=== PATIENT | male | born 1935 | race Caucasian/White ===

== ENCOUNTER 2016-10-14 12:56 | Inpatient (IN) | payer MEDICARE ==
[2016-10-14] MEDS ORDERED: Piperac/Tazob 3.375 gm in NS* 3.375 GM/100 ML BAG IVPB ONE (14:10)
[2016-10-14] MEDS ORDERED: Vancomycin(*) 1,000 MG in NS 0.9% 250 ML* 250 ML IVPB ONE (14:10)
[2016-10-14] MEDS: NS 0.9% 1000 ML* 4,000 ML IV ONE ×4 (14:32→17:19)
[2016-10-14 14:37] LABS: Hematocrit 43 % (42-52); Hemoglobin 13.4 g/dl (14.0-18.0); Mean Corpuscular HGB Conc 31 g/dl (31-36); Mean Corpuscular Hemoglobin 25 pg (27-31); Mean Corpuscular Volume 79 fL (80-94); Mean Platelet Volume 8 um3 (7.4-10.4); Red Blood Count 5.44 10^6/ul (4.0-5.4); Red Cell Distribution Width 16 % (10.5-15); White Blood Count 17.6 10^3/ul (3.5-10.8)
[2016-10-14 14:49] LABS: Albumin 3.4 g/dL (3.2-5.2); BUN/Creatinine Ratio 11.7 (8-20); Calcium 8.9 mg/dL (8.6-10.3); EGFR African American 24.5 (>60); Globulin 3.8 g/dL (2-4); Potassium 3.6 mmol/L (3.5-5.0); Total Bilirubin 0.5 mg/dL (0.2-1.0); Total Protein 7.2 g/dL (6.4-8.9)
[2016-10-14 14:51] LABS: Troponin I 0.03 ng/mL (<0.04)
--- NOTE | 2016-10-14 15:28 | RAD ---
INDICATION: Cough. Fever. Chills. COMPARISON: None TECHNIQUE: PA and lateral dual-energy views were obtained. FINDINGS: Bones/Soft Tissues: There are no acute bony findings. Cardiomediastinal: The cardiomediastinal silhouette is normal. Lungs: There is patchy bilateral infiltrative change likely related to an acute pneumonitis although follow-up is required to document resolution of these findings and exclude an underlying process. Pleura: There are no pleural effusions. Other: None IMPRESSION: SUSPECT BILATERAL PNEUMONIA. RECOMMEND FOLLOW-UP DOCUMENT TO COMPLETE RESOLUTION
[2016-10-14] MEDS ORDERED: Ondansetron INJ* 2 MG/ML VIAL IV PRN (17:03)
[2016-10-14] MEDS ORDERED: Dextrose 50% Syringe 50 ML* 25 GM/50 ML SYRINGE IV PUSH PRN (17:03)
[2016-10-14] MEDS ORDERED: Acetaminophen TAB* 325 MG PO PRN (17:03)
[2016-10-14] MEDS ORDERED: Albuterol 2.5 MG/3 ML NEB.SOL* (0.083%) INH PRN (17:14)
[2016-10-14] MEDS ORDERED: NS 0.9% 1000 ML* 1,000 ML IV SCH (17:15)
[2016-10-14] MEDS ORDERED: cefTRIAXone(*) 1 GM ADVAN ONE (17:16)
[2016-10-14] MEDS: cefTRIAXone VIAL(*) 1,000 MG in NS 0.9% 50 ML* 50 ML IVPB SCH (17:20)
[2016-10-14 17:34] LABS: C Reactive Protein 408.49 mg/L (< 5.00)
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
[2016-10-14 17:53] LABS: Urine Bacteria Absent (Absent); Urine Bilirubin Negative (Negative); Urine Glucose Negative (Negative); Urine Nitrite Negative (Negative)
[2016-10-14 18:02] LABS: Erythrocyte Sed Rate 87 mm/Hr (0-40)
[2016-10-14 18:17] LABS: Urine Bacteria Absent (Absent); Urine Bilirubin Negative (Negative); Urine Glucose Negative (Negative); Urine Nitrite Negative (Negative)
[2016-10-14] MEDS: Mometasone/Formoter 200/5 MDI INH SCH (19:45)
[2016-10-14] MEDS: Heparin VIAL(*) 5000 UNITS/ML VIAL (FIVE THOUSAND) SUBCUT SCH (22:13)
[2016-10-14] MEDS: Azithromycin IV(*) 500 MG in NS 0.9% 250 ML* 250 ML IVPB SCH (22:16)
--- NOTE | 2016-10-14 22:36 | HP ---
HISTORY AND PHYSICAL: DATE OF ADMISSION: 10/14/16 PRIMARY CARE PROVIDER: [facility] in [place]. ATTENDING PHYSICIAN WHILE IN THE HOSPITAL: Prince Waterman MD* (report dictated by Claudio Celestin NP). CHIEF COMPLAINT: 1. Fevers. 2. Body aches. HISTORY OF PRESENT ILLNESS: Mr. Warren is a 81-year-old male patient who underwent dental work at the end of last week. He had dental work done on Friday and last week. The patient states that he had a tooth prosthetic into his right upper third tooth. He states that the tooth there had become loose. He went to his dentist who said that it appeared that he had an abscess formation there that would appear to have been self-draining. The patient's dentist did proceed with cementing the tooth in and ever since having the dental work now, the patient has been having some chills, body aches progressively worsening throughout the weekend, Friday, and throughout Friday and Friday. He started antibiotics for the dental work, he is instructed to take antibiotics prior to any dental work which he had done, he had taken amoxicillin. [facility] and they started him on Augmentin. He denied having any other focal symptoms such as cough. He does admit to having chills. There has been no abdominal pain. No trouble with urination. No vomiting or diarrhea. No abdominal pain. It does not hurt to breath. He has no chest pain. He does state that he gets more short of breath particularly with exertion which is new, but he does have a history of COPD. The patient does state that about 3 weeks ago, he was diagnosed with a presumed bronchitis and was started on an antibiotic for that at that point which he subsequently has finished. He came in to the ER today because despite being on antibiotics, he still was not feeling better. He was taking ibuprofen alternating it with Tylenol and ibuprofen. The symptoms were not getting any better, so he came into the ER and was evaluated. It was found that he appeared to have viral pneumonia, appeared to be septic. Hospitalist service was asked to evaluate for admission. PAST MEDICAL HISTORY: Significant for: 1. Hypertension. 2. Hyperlipidemia. 3. Diabetes. 4. Bladder cancer. 5. CKD stage 3. They believe his creatinine is right around 1.7 baseline. 6. COPD. PAST SURGICAL HISTORY: 1. He has had a cystoscopy. 2. Bilateral knee replacements. 3. Laryngeal polyp removal. 4. ORIF of the right humerus. 5. Appendectomy. HOME MEDICATIONS: According to the pharmacy include: 1. Norvasc 2.5 mg daily. 2. Cialis 2.5 mg daily as needed. 3. VESIcare 5 mg daily. 4. Crestor 20 mg daily. 5. Altace 10 mg p.o. b.i.d. 6. Prilosec 20 mg daily. 7. Metoprolol 200 mg daily. 8. Hydrochlorothiazide 12.5 mg daily. 9. Advair 1 puff inhaled b.i.d. 10. Proscar 5 mg daily. 11. Ferrous sulfate 325 mg p.o. daily. 12. Trulicity 1.5 mg subcu weekly. 13. Cymbalta 60 mg p.o. daily. 14. Vitamin D 1000 units p.o. daily. 15. Augmentin 875 mg p.o. b.i.d. ALLERGIES TO MEDICATIONS: Include no known drug allergies. FAMILY HISTORY: His mother at the age of 89. Father of an ME in his 80s. His 2 brothers had heart attacks in their 30s. SOCIAL HISTORY: He is a former smoker. He rarely drinks alcohol. He lives alone. Surrogate decision maker is his daughter. REVIEW OF SYSTEMS: There was a documented fever. He denies having any significant weight change. No double vision. No ear discharge. No rhinorrhea. No sore throat. No thyroid enlargement. Denies having any chest pain. There is no orthopnea. No chest pain. No abdominal pain. No nausea. No vomiting. No dysuria. No frequency. No loss of consciousness. No pruritus and no skin ulcerations. Review of 14 systems completed, all others negative. PHYSICAL EXAMINATION GENERAL: At this time, Mr. Warren is a 81-year-old male patient. He is sitting in the ER stretcher. He does not appear to be in any acute distress. VITAL SIGNS: Blood pressure 102/56, pulse 91, respirations 18, O2 sat 92%, and temperature 99.5. HEENT: Head is atraumatic and normocephalic. Eyes: EOMs are intact. Sclerae are anicteric and not pale. Throat: Oral mucosa appears to be dry. No oropharyngeal erythema. I did examine the area where the dental procedure was performed. I could not appreciate any swelling, erythema, or any drainage. NECK: Supple. LUNGS: Clear to auscultation. No wheezes, rales, or rhonchi. HEART: Sounds S1, S2. Regular rate and rhythm. No murmurs, rubs, or gallops. ABDOMEN: Soft, it was flat, nontender. Bowel sounds were present. EXTREMITIES: Pulses were 2+ throughout. He is able to move all 4 extremities with 5/5 strength. NEUROLOGIC: The patient is awake, he is alert, he is oriented x3. His tongue is midline. His motorcycle service technician are equal. He had no gross focal deficits. SKIN: Intact. LABORATORY DATA AND DIAGNOSTIC STUDIES: Today revealed a WBC of 17.6, RBC of 5.44, hemoglobin of 13.4, hematocrit of 43, platelet count of 157. The INR was 1.10. PTT of 29.5. His sodium was 132, potassium of 3.6, chloride of 102, bicarb 21, BUN 37, creatinine 3.17, no previous for comparison. Glucose 230, lactic 1.7, calcium 8.9. Total bili 0.5, AST 14, ALT 11, alk phos 58. Troponin 0.03. Albumin is 3.4. He had a chest x-ray obtained today and on my review, I do see that he has what appears to be bilateral infiltrates. Radiology read it as suspect bilateral pneumonia. Recommend followup to document complete resolution. He had an EKG obtained today which showed a normal sinus rhythm with a rate of 95. No ST elevations or T-wave inversions were noted. Old medical records were reviewed. ASSESSMENT AND PLAN: Mr. Warren is a 81-year-old male patient coming to the ER today with complaints of body aches, fevers, and feeling weak particularly over the weekend since dental work. On evaluation, he was found to be septic with acute renal failure and in addition to this, bilateral pneumonia. He will be admitted under inpatient status for: 1. Severe sepsis secondary to bilateral pneumonia, as evidenced by he was mildly tachycardic here. He has had a white count of 18,000 and he also was noted to be in acute on chronic renal failure. Plan: At this point, he has gotten 4 L of fluid in the ER. I am going to panculture the patient. I did touch base with Dr. Selby because I do get concerned due to the fact he is having body aches. He has a fever now and high white count in the setting of recent dental procedure. Endocarditis certainly is on the table here. I think we should get blood cultures. They may be culture negative, so I did start out with a transthoracic echo and we will get Dr. Selby to evaluate. For the time being though, I am going to treat the pneumonia because that is my obvious source currently, with Rocephin and azithromycin. Dr. Selby will be evaluating tomorrow. We will panculture the patient. I will get a flu swab. We will get a Legionella antigen and strep pneumo antigen and we will try to get a sputum culture if at all possible. 2. Acute on chronic renal failure: At this point, this is probably multifactorial. He was taking ibuprofen. He was on an TALIB inhibitor and he appears to be dehydrated, so my plan is to go ahead and get a FeNa workup, bladder scan the patient and also give fluids, if they do not improve with fluids, I would certainly get further renal ultrasound, but I do not suspect any obstructive uropathy as he is not having any pain currently and we will continue to follow. 3. Hypertension: His blood pressure is in the soft side with the systolics in the 90s. They are up to 100 after 4 L of fluid. My plan is to hold his antihypertensives for the time being. 4. Hyperlipidemia: Continue statin therapy. 5. Diabetes: He will be on a lispro sliding scale. 6. Bladder cancer: He can follow with the primary. 7. Chronic kidney disease stage 3: Again, baseline creatinine apparently according to the family is 1.7. I am going to try to get records. He does have a component of acute renal failure. We will treat this as I previously said. 8. Chronic obstructive pulmonary disease: Fortunately, he is not wheezing. He does not appear to be in an acute exacerbation. I do not think there is a role for steroids, but I will go ahead and put him on the Spiriva. Continue the Advair p.r.n. nebulizers. I have ordered a flutter valve. 9. Code status: He is full code. 10. DVT prophylaxis: He will be placed on heparin subcu. 11. Fluids, electrolytes, and nutrition: He can have a heart healthy diet. TIME SPENT: Time spent on the admission was 70 minutes; greater than half the time was spent [id number] with the patient obtaining my history and physical, other half of the time spent going over the plan of care with the patient and implementing plan of care. I did discuss the plan of care with my attending, Dr. Waterman; he is in agreement. CLAUDIO CELESTIN NP CC: [facility] * [id number]/CPS #: [id number] [place]ODNEY
[2016-10-15] MEDS: Heparin VIAL(*) 5000 UNITS/ML VIAL (FIVE THOUSAND) SUBCUT SCH ×3 (05:37→21:01)
[2016-10-15 05:56] LABS: Hematocrit 40 % (42-52); Hemoglobin 12.4 g/dl (14.0-18.0); Mean Corpuscular HGB Conc 31 g/dl (31-36); Mean Corpuscular Hemoglobin 25 pg (27-31); Mean Corpuscular Volume 79 fL (80-94); Mean Platelet Volume 9 um3 (7.4-10.4); Red Blood Count 5.02 10^6/ul (4.0-5.4); Red Cell Distribution Width 16 % (10.5-15); White Blood Count 15.1 10^3/ul (3.5-10.8)
[2016-10-15 06:10] LABS: BUN/Creatinine Ratio 12.3 (8-20); EGFR African American 29.7 (>60); EGFR Non-African American 23.1 (>60); Potassium 3.7 mmol/L (3.5-5.0)
[2016-10-15] MEDS ORDERED: Azithromycin IV(*) 500 MG in NS 0.9% 250 ML* 250 ML IVPB ONE (08:00)
[2016-10-15] MEDS: Insulin LISPRO* 1 UNITS UNIT SUBCUT SCH ×3 (08:17→17:20)
[2016-10-15] MEDS: Finasteride TAB* 5 MG PO SCH (08:54)
[2016-10-15] MEDS: DULoxetine DR CAP* 60 MG CAP.DR PO SCH (08:54)
[2016-10-15] MEDS: CMC:Solifenacin(NF) 5 MG TAB PO SCH (08:54)
[2016-10-15] MEDS: Atorvastatin* 40 MG TAB PO SCH (08:54)
[2016-10-15] MEDS: Omeprazole CAP* 20 MG PO SCH (08:54)
[2016-10-15] MEDS ORDERED: Solifenacin(NF) 5 MG TAB PO SCH (09:00)
[2016-10-15] MEDS: Mometasone/Formoter 200/5 MDI INH SCH ×2 (10:30→20:17)
--- NOTE | 2016-10-15 11:01 | PN ---
Subjective Date of Service: 10/15/16 Interval History: Patient seen this morning, says he continues to feel very weak and SOB with exertion. Has been having some diarrhea. Says he felt well prior to his dental appointment which was down in [facility]. Has not done any camping, cannot recall being around any stagnant water. Family History: Unchanged from Admission Social History: Unchanged from Admission Past Medical History: Unchanged from Admission Objective Active Medications: Acetaminophen (Tylenol Tab*) 650 mg PO Q4H PRN Albuterol (Ventolin 2.5 Mg/3 Ml Neb.Justine*) 2.5 mg INH Q4H PRN Atorvastatin Calcium (Lipitor*) 40 mg PO DAILY JAMES Dextrose (D50w Syringe 50 Ml*) 12.5 gm IV PUSH .FOR FS < 60 - SS PRN Duloxetine HCl (Cymbalta Cap*) 60 mg PO DAILY JAMES Finasteride (Proscar Tab*) 5 mg PO DAILY [facility] Heparin Sodium (Porcine) (Heparin Vial(*)) 5,000 units SUBCUT Q8HR JAMES Ceftriaxone Sodium 1,000 mg/ (Sodium Chloride) 50 mls @ 200 mls/hr IVPB Q24H JAMES Azithromycin 500 mg/ Sodium (Chloride) 250 mls @ 250 mls/hr IVPB Q24H JAMES Insulin Human Lispro (Humalog*) 0 units SUBCUT AC JAMES Mometasone Furoate/Formoterol Fumar (Dulera 200/5 Mdi*) 2 puff INH BID JAMES Omeprazole (Prilosec Cap*) 20 mg PO DAILY JAMES Ondansetron HCl (Zofran Inj*) 4 mg IV Q6H PRN Solifenacin (Vesicare(Nf)) 5 mg PO DAILY [facility] Vital Signs 10/14/16 10/14/16 10/14/16 17:00 17:30 17:49 Temperature 98.9 F Pulse Rate 91 88 94 Respiratory 20 Rate Blood Pressure 102/56 104/49 109/50 (mmHg) O2 Sat by Pulse 93 93 94 Oximetry 10/14/16 10/14/16 10/14/16 17:59 18:29 23:43 Temperature 98.9 F 100.7 F Pulse Rate 92 94 106 Respiratory 20 24 Rate Blood Pressure 109/50 109/46 (mmHg) O2 Sat by Pulse 94 94 92 Oximetry 10/15/16 10/15/16 10/15/16 03:32 07:45 08:00 Temperature 99.4 F 99.4 F Pulse Rate 99 102 Respiratory 24 16 16 Rate Blood Pressure 109/59 116/38 (mmHg) O2 Sat by Pulse 91 93 93 Oximetry Oxygen Devices in Use Now: Nasal Cannula Appearance: Elderly, M, laying in bed in mild respiratory distress Eyes: No Scleral Icterus Ears/Nose/Mouth/Throat: Mucous Membranes Moist Neck: NL Appearance and Movements; NL JVP Respiratory: Symmetrical Chest Expansion and Respiratory Effort, - - Mild rales in B/L bases, no wheezing Cardiovascular: NL Sounds; No Murmurs; No JVD, RRR Abdominal: NL Sounds; No Tenderness; No Distention Lymphatic: No Cervical Adenopathy Extremities: - - Trace LE edema B/L Skin: No Rash or Ulcers Neurological: Alert and Oriented x 3 Result Diagrams: 10/15/16 05:04 10/15/16 05:04 Microbiology and Other Data: Microbiology 10/15/16 09:10 Gram Stain - Final Sputum 10/14/16 17:45 Legionella Urinary Antigen - Final Urine Positive Legionella Antigen Streptococcus pneumoniae Ag Screen - Final Negative S. pneumo Antigen 10/14/16 17:30 Influenza Types A,B Antigen (LISA) - Final Nasal Specimen received for Influenza A/B Molecular testing Assess/Plan/Problems-Billing Assessment: Sepsis, acute hypoxic respiratory failure 2/2 Legionella PNA in a 81 yo M with hx of HTN, HLD, DM, CKD3, COPD, bladder ca - Patient Problems (1) Sepsis Current Visit: Yes Comment: , acute hypoxic respiratory failure 2/2 Legionella PNA. Additional 500 mg IV Azithromycin given this AM for total of 1 g so far. Continue Azithromycin 500 mg daily, continue CTX for now as well. Continue follow BCx. Echo pending read, endocarditis seems less likely now. (2) KOFI (acute kidney injury) Current Visit: Yes Comment: on CKD3. Creatinine improving, FeNa <1%. Patient' s baseline seems to be around 1.7 as per reports. Patient received 5L IVF, hold on additional fluids for now and encourage PO only. Trend BMP daily. Continue to hold nephrotoxic medications. (3) HTN (hypertension) Current Visit: Yes Comment: Continue to hold home Metoprolol, Ramipril, HCTZ and Amlodipine (4) Diabetes Current Visit: Yes Comment: HISS. Holding home Trulicity. (5) HLD (hyperlipidemia) Current Visit: Yes Comment: Statin (6) DVT prophylaxis Current Visit: Yes Comment: HSQ Status and Disposition: Inpatient for legionella PNA, acute hypoxic respiratory failure
--- NOTE | 2016-10-15 12:06 | ECHO ---
Patient: KODAK BENNETT [facility] Rec#: [id number] : 1935 Date: 10/15/2016 Age: 81y Height: 170.18 cm / 67.0 in Weight: 113.4 kg / 249.9 lbs Sex: M BSA: 2.22 Room#: [facility] Admit Date#: 10/14/2016 Type: Inpatient Referring: Claudio Celestin NP Reading: Cr Skinner MD Quality Assurance Auditor: Sera Grider Quality Assurance Auditor: Berenice Patel RDCS,RDMS CC: Luis Felipe Selby MD Transthoracic Echocardiogram Indication: Fever BP: 109/59 HR: 91 Rhythm: NSR Indications Fever Findings History: HTN, HLD, DM, CKD stage III, COPD. Technical Comments: The study is technically difficult. The study is technically limited due to patient body habitus. The study is technically limited due to the patient's history of COPD. Completed at 1100. Left Ventricle: The left ventricular chamber size is normal. Moderate concentric left ventricular hypertrophy is observed. Global left ventricular wall motion and contractility are within normal limits. The left ventricle appears hyperdynamic. The estimated ejection fraction is greater than 65%. There is no consistent Doppler evidence of clinically significant diastolic dysfunction. Left Atrium: The left atrium is mildly dilated. Right Ventricle: The right ventricular cavity size is normal. The right ventricular global systolic function is hyperdynamic. Right Atrium: The right atrial cavity size is normal. Aortic Valve: The aortic valve is trileaflet. The aortic valve leaflets are mildly thickened. There is a trace of aortic regurgitation. There is mild aortic stenosis. The aortic valve area, by VTI's, is calculated at 2 cm2. The highest aortic valve velocity was obtained with the standard probe from the A5C view. Mitral Valve: The mitral valve leaflets are mildly thickened. There is a trace of mitral regurgitation. There is no evidence of mitral stenosis. Tricuspid Valve: The tricuspid valve leaflets are normal. There is trace to mild tricuspid regurgitation. There is evidence that pulmonary hypertension may be underestimated. There is no tricuspid stenosis. Pulmonic Valve: The pulmonic valve structure is not well visualized. There is no pulmonic stenosis. Pericardium: There is no significant pericardial effusion. A pericardial fat pad is visualized. Aorta: There is no dilatation of the ascending aorta. The aortic arch is not well visualized. There is no dilation of the aortic root. Pulmonary Artery: The main pulmonary artery is not well visualized. Venous: The inferior vena cava appears normal in size. There is a greater than 50% respiratory change in the inferior vena cava dimension. Conclusions Moderate concentric left ventricular hypertrophy is observed. Global left ventricular wall motion and contractility are within normal limits. The left ventricle appears hyperdynamic. The estimated ejection fraction is greater than 65%. The right ventricular global systolic function is hyperdynamic. The aortic valve leaflets are mildly thickened. There is mild aortic stenosis. There is a trace of aortic regurgitation. Peak velocity 2.3 m/sec There is a trace of mitral regurgitation. There is trace to mild tricuspid regurgitation. There is no significant pericardial effusion. Measurements Name Value Normal Range RVIDd (AP) 2D 3.1 cm (0.9 - 2.6) RVDdMajor (2D) 4.3 cm (2.2 - 4.4) RAd ISD 4CH 4.8 cm (3.4 - 4.9) RA (A4C)W 4.5 cm (2.9 - 4.6) IVSd (2D) 1.5 cm (0.6 - 1) LVPWd (2D) 1.3 cm (0.6 - 1) LVIDd (2D) 4.5 cm (3.6 - 5.4) LVIDs (2D) 2.8 cm - LV FS (2D) 36 % (25 - 45) Aortic Annulus 2.2 cm (1.4 - 2.6) Ao root diameter (2D) 2.9 cm (2.1 - 3.5) Ascending Ao 3.4 cm (2.1 - 3.4) LA dimension (AP) 2D 4.2 cm (2.3 - 3.8) LAd ISD 4CH 5.7 cm (2.9 - 5.3) LA ISD 4CH W 4.1 cm (2.5 - 4.5) Name Value Normal Range LA ESV SP 4CH (A/L) 67 ml - LA ESV SP 2CH (A/L) 66 ml - LA ESV BP (A/L) 69 ml - LA ESV BP (A/L) index 31.16 ml/m2 - LA ESV SP 4CH (MOD) 60 ml - LA ESV SP 2CH (MOD) 58 ml - Name Value Normal Range MV E-wave Vmax 0.91 m/sec - MV deceleration time 161 msec - MV A-wave Vmax 0.8 m/sec - MV E:A ratio 1.18 ratio - LV septal e' Vmax 0.09 m/sec - LV lateral e' Vmax 0.1 m/sec - LV E:e' septal ratio 10.1 ratio - LV E:e' lateral ratio 9.1 ratio - Name Value Normal Range AV Vmax 2.47 m/sec - AV VTI 41.1 cm - AV peak gradient 24.41 mmHg - AV mean gradient 14.8 mmHg - LVOT diameter 2 cm - LVOT Vmax 1.55 m/sec - LVOT VTI 26.1 cm - LVOT peak gradient 9.63 mmHg - LVOT mean gradient 5.05 mmHg - DOI (VTI) 0.64 ratio - ROSHNI (continuity Vmax) 1.97 cm2 - ROSHNI (continuity VTI) 2 cm2 - Name Value Normal Range TR Vmax 2.3 m/sec - TR peak gradient 21 mmHg - RAP 3 mmHg - RVSP 24 mmHg - IVC diameter 2 cm - Name Value Normal Range PV Vmax 1.3 m/sec - PV peak gradient 6.34 mmHg -
[2016-10-15] MEDS: cefTRIAXone VIAL(*) 1,000 MG in NS 0.9% 50 ML* 50 ML IVPB SCH (17:20)
[2016-10-15] MEDS: Azithromycin IV(*) 500 MG in NS 0.9% 250 ML* 250 ML IVPB SCH (19:22)
--- NOTE | 2016-10-15 21:53 | CONS ---
CONSULTATION REPORT: DATE OF CONSULT: 10/15/16 REQUESTING PHYSICIAN: Dr. Abbasi. CONSULTING SERVICE: Infectious Disease. REASON FOR CONSULT: Pneumonia. IMPRESSION: 1. Bibasilar infiltrates, cough, myalgia, diarrhea, and positive legionella urine antigen all consistent with legionella pneumonia. 2. Leukocytosis due to #1. 3. Acute hypoxemic respiratory failure present on admission due to #1. 4. Sepsis present on admission due to #1. 5. Chronic kidney disease with acute kidney injury. RECOMMENDATION: Continue ceftriaxone while awaiting the final sputum culture as well as azithromycin. If the sputum culture is negative, we are going to stop the ceftriaxone. Planning on 7 days of azithromycin. HISTORY OF PRESENT ILLNESS: This is a 81-year-old man admitted with cough, myalgia, and diarrhea. He had been well until the weekend. He began to develop chills and diffuse aches, which were intense, involved all parts of his body. He had some headache, then Friday developed some liquid stools. Had had ongoing sweats and chills during that time. He lost his appetite, was drinking water. He came to the hospital on the . He was febrile in the emergency room, was tachycardic and hypotensive in the 90s, and was started on IV fluids, ceftriaxone, azithromycin after getting the Zosyn in the ER. There was original concern for dental-based infection given he has had some dental work as an outpatient including removal and cleaning of a bridge. He initially also sought care at [facility] where he was prescribed Augmentin which he took for about a day. He had no improvement while taking it. PAST MEDICAL HISTORY: 1. Hypertension. 2. Hyperlipidemia. 3. Diabetes. 4. Bladder cancer. 5. Chronic kidney disease, stage 3. 6. COPD. 7. Status post bilateral knee arthroplasty. 8. Status post open reduction internal fixation of the right humerus. 9. Status post appendectomy. MEDICATIONS: 1. Tylenol. 2. Albuterol. 3. Lipitor. 4. Duloxetine. 5. Finasteride. 6. Omeprazole. 7. Ceftriaxone 1 g daily. 8. Solifenacin. 9. Azithromycin 500 mg every 24 hours. ALLERGIES: No known drug allergies. FAMILY HISTORY: No recurrent infections. SOCIAL HISTORY: He lives in [place], recently traveled to [facility], staying with a friend there. He has no sick contacts. REVIEW OF SYSTEMS: Full review of systems was negative except as noted above. PHYSICAL EXAM: Vital Signs: Temperature is 38.1, heart rate 102, respiratory rate 20, blood pressure 116/38, O2 sat 91% on room air. In general, he is awake , non- distressed. HEENT: There is no conjunctival hemorrhage. Oropharynx without lesions. Neck is supple without nuchal rigidity. Lymph Nodes: There is no cervical, supraclavicular, inguinal, axillary, or epitrochlear lymphadenopathy. Heart is regular and tachycardic without murmurs. Lungs have decreased breath sounds at the base bilaterally. Abdomen: Soft, obese, nontender, nondistended. There are bowel sounds present. Skin: There is no rash or splinter hemorrhages. Musculoskeletal: There is no spine tenderness to palpation or joint synovitis. LABORATORY DATA: White blood cell count , hemoglobin 12, platelets 156, MCV 79. Creatinine 2.7. CRP 400. Blood cultures are negative 24 hours. Please impressions and recommendations as outlined above which I have discussed with Dr. Abbasi. Thanks for asking me to see Dr. Warren in consultation. [id number]/CPS #: [id number] MTDD
[2016-10-16] MEDS: Heparin VIAL(*) 5000 UNITS/ML VIAL (FIVE THOUSAND) SUBCUT SCH ×3 (05:29→21:40)
[2016-10-16] MEDS: Mometasone/Formoter 200/5 MDI INH SCH ×2 (08:24→20:14)
[2016-10-16] MEDS: Insulin LISPRO* 1 UNITS UNIT SUBCUT SCH ×3 (08:37→16:46)
[2016-10-16] MEDS: Finasteride TAB* 5 MG PO SCH (08:37)
[2016-10-16] MEDS: CMC:Solifenacin(NF) 5 MG TAB PO SCH (08:37)
[2016-10-16] MEDS: DULoxetine DR CAP* 60 MG CAP.DR PO SCH (08:37)
[2016-10-16] MEDS: Atorvastatin* 40 MG TAB PO SCH (08:37)
[2016-10-16] MEDS: Omeprazole CAP* 20 MG PO SCH (08:37)
--- NOTE | 2016-10-16 11:00 | PN ---
Progress Note - Progress Note SOAP: Subjective: DOS: 10/16/16 CC: pneumonia HPI: 81 year old man with cough, fever, myalgia, now has cough but myalgia and fever improved. No rash, had diarrhea which is improving. No abd pain. Objective: [] Vital Signs Temp 36.8 C 10/16/16 07:16 Pulse 100 10/16/16 08:25 Resp 20 10/16/16 08:25 BP 130/56 10/16/16 07:16 Pulse Ox 93 10/16/16 08:25 Intake & Output 10/15/16 10/16/16 10/16/16 18:59 06:59 18:59 Intake Total 260 1525 350 Output Total 600 875 Balance -340 650 350 Intake: IV Fluids 20 NS (0.9%) 20 IVPB 260 265 ABX - AZITHROMYCIN 260 265 Oral 0 1240 350 Output: Urine 600 875 Other: # Bowel Movements 1 0 Estimated Stool Amount Medium Gen:no distress Neuro:AAOx3 HEENT:PERRL, MMM Neck:Supple Heart:RRR no murmurs Lungs:CTA BL Abd:+BS NTND soft Skin: no rash MS: no spine tenderness Laboratory Results - last 24 hr 10/15/16 10/15/16 10/16/16 11:40 16:48 07:31 POC Glucose (mg/dL) 179 H 163 H 154 H Assessment: 1. Legionella pneumonia 2. diabetes 3. morbid obesity 4. CKD, stage 3 5. dyspnea Plan: 1. DC ceftriaxone, continue azithromycin 500 mg IV Q24hrs day 08/20, likely change to PO on 10/17. 35 minutes floor time >50% face to face in counseling with patient and his significant other discussing his infection, antibiotic treatment and monitoring of treatment response. All questions answered.
--- NOTE | 2016-10-16 11:53 | PN ---
Subjective Date of Service: 10/16/16 Interval History: HOSPITALIST PROGRESS NOTE Patient seen and examined at bedside. He feels a little better today. Still has some cough, but denies dyspnea. Family History: Unchanged from Admission Social History: Unchanged from Admission Past Medical History: Unchanged from Admission Objective Active Medications: Acetaminophen (Tylenol Tab*) 650 mg PO Q4H PRN PRN Reason: FEVER/PAIN Last Admin: 10/14/16 22:46 Dose: 650 mg Albuterol (Ventolin 2.5 Mg/3 Ml Neb.Justine*) 2.5 mg INH Q4H PRN PRN Reason: SOB/WHEEZING Atorvastatin Calcium (Lipitor*) 40 mg PO DAILY [facility] Last Admin: 10/16/16 08:37 Dose: 40 mg Dextrose (D50w Syringe 50 Ml*) 12.5 gm IV PUSH .FOR FS < 60 - SS PRN PRN Reason: FS < 60 Duloxetine HCl (Cymbalta Cap*) 60 mg PO DAILY [facility] Last Admin: 10/16/16 08:37 Dose: 60 mg Finasteride (Proscar Tab*) 5 mg PO DAILY [facility] Last Admin: 10/16/16 08:37 Dose: 5 mg Heparin Sodium (Porcine) (Heparin Vial(*)) 5,000 units SUBCUT Q8HR [facility] Last Admin: 10/16/16 05:29 Dose: 5,000 units Azithromycin 500 mg/ Sodium (Chloride) 250 mls @ 250 mls/hr IVPB Q24H [facility] Last Admin: 10/15/16 19:22 Dose: 250 mls/hr Insulin Human Lispro (Humalog*) 0 units SUBCUT AC [facility] PRN Reason: Protocol Last Admin: 10/16/16 08:37 Dose: 3 unit Mometasone Furoate/Formoterol Fumar (Dulera 200/5 Mdi*) 2 puff INH BID [facility] Last Admin: 10/16/16 08:24 Dose: Not Given Omeprazole (Prilosec Cap*) 20 mg PO DAILY [facility] Last Admin: 10/16/16 08:37 Dose: 20 mg Ondansetron HCl (Zofran Inj*) 4 mg IV Q6H PRN PRN Reason: NAUSEA Solifenacin (Vesicare(Nf)) 5 mg PO DAILY [facility] Last Admin: 10/16/16 08:37 Dose: 5 mg Vital Signs 10/16/16 10/16/16 10/16/16 08:00 08:25 11:21 Temperature 98.0 F Pulse Rate 100 95 Respiratory 16 20 18 Rate Blood Pressure 129/64 (mmHg) O2 Sat by Pulse 93 93 96 Oximetry Oxygen Devices in Use Now: Nasal Cannula Appearance: Elderly obese male sitting up in bed in NAD. Eyes: No Scleral Icterus Ears/Nose/Mouth/Throat: Mucous Membranes Moist Neck: Trachea Midline Respiratory: Symmetrical Chest Expansion and Respiratory Effort, - - BS+ bilaterally with bibasilar crackles Cardiovascular: RRR - Normal S1 and S2 Abdominal: NL Sounds; No Tenderness; No Distention - obese Extremities: No Edema Neurological: Alert and Oriented x 3, NL Muscle Strength and Tone Lines/Tubes/Other Access: Clean, Dry and Intact Peripheral IV Nutrition: Taking PO's Result Diagrams: 10/15/16 05:04 10/15/16 05:04 Assess/Plan/Problems-Billing Assessment: Mr. Warren is a 81yo M with PMH of morbid obesity, ABENA (non compliant with CPAP) , HTN, HLD, type 2 DM, bladder CA, CKD stage 3, COPD, who presented with sepsis , acute hypoxic respiratory failure 2/2 Legionella PNA. - Patient Problems (1) Sepsis Comment: - Met sepsis criteria on admission with tachycardia and leukocytosis. - Source is Legionella pneumonia. (2) Legionella pneumonia Comment: - ID input appreciated - d/c Ceftriaxone and continue Zithromax. (3) Acute hypoxemic respiratory failure Comment: - Secondary to pneumonia. - Continue supplemental O2. (4) KOFI (acute kidney injury) Comment: - on CKD3. Creatinine improving, FeNa <1%. Patient's baseline seems to be around 1.7 as per reports. - Continue to monitor. (5) HTN (hypertension) Comment: - BP controlled off meds. - Continue to hold home Metoprolol, Ramipril, HCTZ and Amlodipine. (6) Diabetes Comment: - Continue Lispro SS. - Holding home Trulicity. (7) HLD (hyperlipidemia) Comment: - Continue Atorvastatin. (8) DVT prophylaxis Comment: - SQ heparin. (9) Full code status Status and Disposition: Inpatient for legionella PNA, acute hypoxic respiratory failure
[2016-10-16] MEDS: Azithromycin IV(*) 500 MG in NS 0.9% 250 ML* 250 ML IVPB SCH (20:02)
[2016-10-17] MEDS: Heparin VIAL(*) 5000 UNITS/ML VIAL (FIVE THOUSAND) SUBCUT SCH ×3 (05:41→21:41)
[2016-10-17 05:56] LABS: Hematocrit 39 % (42-52); Hemoglobin 12.4 g/dl (14.0-18.0); Mean Corpuscular HGB Conc 32 g/dl (31-36); Mean Corpuscular Hemoglobin 25 pg (27-31); Mean Corpuscular Volume 78 fL (80-94); Mean Platelet Volume 8 um3 (7.4-10.4); Red Cell Distribution Width 16 % (10.5-15); White Blood Count 7.4 10^3/ul (3.5-10.8)
[2016-10-17 05:59] LABS: Add Diff/Slide Review? Slide Review Added; Comments Flag Yes
[2016-10-17 06:08] LABS: Calcium 8.6 mg/dL (8.6-10.3); EGFR African American 48.6 (>60); EGFR Non-African American 37.8 (>60); Potassium 3.6 mmol/L (3.5-5.0)
[2016-10-17] MEDS: Mometasone/Formoter 200/5 MDI INH SCH ×2 (08:36→20:25)
[2016-10-17] MEDS: Atorvastatin* 40 MG TAB PO SCH (09:37)
[2016-10-17] MEDS: CMC:Solifenacin(NF) 5 MG TAB PO SCH (09:37)
[2016-10-17] MEDS: DULoxetine DR CAP* 60 MG CAP.DR PO SCH (09:37)
[2016-10-17] MEDS: Finasteride TAB* 5 MG PO SCH (09:38)
[2016-10-17] MEDS: Insulin LISPRO* 1 UNITS UNIT SUBCUT SCH ×3 (09:38→16:50)
[2016-10-17] MEDS: Omeprazole CAP* 20 MG PO SCH (09:38)
--- NOTE | 2016-10-17 09:59 | PN ---
Progress Note - Progress Note SOAP: Subjective: DOS: 10/17/16 CC: pneumonia HPI: 81 year old man with cough, fever, myalgia, all improving. Dyspnea on exertion, not at rest, no chest pain. O2 sat high 80's w ambulation. No rash, fever, or diarrhea. Objective: [] Vital Signs Temp 36.7 C 10/17/16 06:05 Pulse 92 10/17/16 08:36 Resp 16 10/17/16 08:36 BP 126/49 10/17/16 06:05 Pulse Ox 93 10/17/16 08:36 Intake & Output 10/16/16 10/17/16 10/17/16 18:59 06:59 18:59 Intake Total 550 282 Output Total 350 350 Balance 200 -68 Intake: IV Fluids 20 NS (0.9%) 20 IVPB 262 ABX - AZITHROMYCIN 262 Oral 550 0 Output: Urine 350 350 Gen:no distress Neuro:AAOx3 HEENT:PERRL, MMM Neck:Supple Heart:RRR no murmurs Lungs:CTA BL Abd:+BS NTND soft Skin: no rash MS: no spine tenderness Laboratory Results - last 24 hr 10/16/16 10/16/16 10/17/16 11:31 16:25 05:15 WBC 7.4 RBC 5.00 Hgb 12.4 L Hct 39 L MCV 78 L MCH 25 L MCHC 32 RDW 16 H Plt Count 183 MPV 8 Neut % (Auto) 71.7 Lymph % (Auto) 10.5 L [place] % (Auto) 13.9 H Eos % (Auto) 3.5 Baso % (Auto) 0.4 Absolute Neuts (auto) 5.3 Absolute Lymphs (auto) 0.8 L Absolute Monos (auto) 1.0 H Absolute Eos (auto) 0.3 Absolute Basos (auto) 0 Absolute Nucleated RBC 0 Nucleated RBC % 0 Sodium Potassium Chloride Carbon Dioxide Anion Gap BUN Creatinine Est GFR ( Amer) Est GFR (Non-Af Amer) BUN/Creatinine Ratio Glucose POC Glucose (mg/dL) 222 H 117 H Calcium 10/17/16 10/17/16 05:15 08:19 WBC RBC Hgb Hct MCV MCH MCHC RDW Plt Count MPV Neut % (Auto) Lymph % (Auto) [place] % (Auto) Eos % (Auto) Baso % (Auto) Absolute Neuts (auto) Absolute Lymphs (auto) Absolute Monos (auto) Absolute Eos (auto) Absolute Basos (auto) Absolute Nucleated RBC Nucleated RBC % Sodium 139 Potassium 3.6 Chloride 109 Carbon Dioxide 24 Anion Gap 6 BUN 21 Creatinine 1.75 H Est GFR ( Amer) 48.6 Est GFR (Non-Af Amer) 37.8 BUN/Creatinine Ratio 12.0 Glucose 137 H POC Glucose (mg/dL) 159 H Calcium 8.6 Assessment: 1. Legionella pneumonia 2. acute hypoxemic respiratory failure, present on admission, resolving 3. diabetes 4. morbid obesity 5. CKD, stage 3 6. dyspnea Plan: 1.continue azithromycin 500 mg IV Q24hrs day 09/20, change to PO (ordered) 25 minutes floor time >50% face to face in counseling with patient regarding antibiotic course, likely slow improvement in symptoms including dyspnea and energy. All questions answered.
[2016-10-17] MEDS ORDERED: Azithromycin TAB* 250 MG PO ONE (14:00)
--- NOTE | 2016-10-17 14:12 | PN ---
Subjective Date of Service: 10/17/16 Interval History: HOSPITALIST PROGRESS NOTE Patient seen and examined at bedside. He feels better today. Still has some cough and exertional dyspnea, but less intense than before. Family History: Unchanged from Admission Social History: Unchanged from Admission Past Medical History: Unchanged from Admission Objective Active Medications: Acetaminophen (Tylenol Tab*) 650 mg PO Q4H PRN PRN Reason: FEVER/PAIN Last Admin: 10/14/16 22:46 Dose: 650 mg Albuterol (Ventolin 2.5 Mg/3 Ml Neb.Justine*) 2.5 mg INH Q4H PRN PRN Reason: SOB/WHEEZING Atorvastatin Calcium (Lipitor*) 40 mg PO DAILY [facility] Last Admin: 10/17/16 09:37 Dose: 40 mg Dextrose (D50w Syringe 50 Ml*) 12.5 gm IV PUSH .FOR FS < 60 - SS PRN PRN Reason: FS < 60 Duloxetine HCl (Cymbalta Cap*) 60 mg PO DAILY [facility] Last Admin: 10/17/16 09:37 Dose: 60 mg Finasteride (Proscar Tab*) 5 mg PO DAILY [facility] Last Admin: 10/17/16 09:38 Dose: 5 mg Heparin Sodium (Porcine) (Heparin Vial(*)) 5,000 units SUBCUT Q8HR [facility] Last Admin: 10/17/16 13:43 Dose: 5,000 units Insulin Human Lispro (Humalog*) 0 units SUBCUT AC [facility] PRN Reason: Protocol Last Admin: 10/17/16 12:03 Dose: 6 unit Mometasone Furoate/Formoterol Fumar (Dulera 200/5 Mdi*) 2 puff INH BID [facility] Last Admin: 10/17/16 08:36 Dose: 2 puff Omeprazole (Prilosec Cap*) 20 mg PO DAILY [facility] Last Admin: 10/17/16 09:38 Dose: 20 mg Solifenacin (Vesicare(Nf)) 5 mg PO DAILY [facility] Last Admin: 10/17/16 09:37 Dose: 5 mg Vital Signs 10/17/16 10/17/16 10/17/16 05:44 06:05 08:00 Temperature 98.0 F Pulse Rate 77 Respiratory 20 18 Rate Blood Pressure 126/49 (mmHg) O2 Sat by Pulse 96 92 93 Oximetry 10/17/16 08:36 Temperature Pulse Rate 92 Respiratory 16 Rate Blood Pressure (mmHg) O2 Sat by Pulse 93 Oximetry Oxygen Devices in Use Now: Nasal Cannula Appearance: Pleasant elderly male sitting up in a chair in NAD. Eyes: No Scleral Icterus Ears/Nose/Mouth/Throat: Mucous Membranes Moist Neck: Trachea Midline Respiratory: Symmetrical Chest Expansion and Respiratory Effort, - - BS+ bilaterally with bibasilar crackles Cardiovascular: RRR - Normal S1 and S2 Abdominal: NL Sounds; No Tenderness; No Distention - obese Neurological: Alert and Oriented x 3, NL Muscle Strength and Tone Lines/Tubes/Other Access: Clean, Dry and Intact Peripheral IV Nutrition: Taking PO's Result Diagrams: 10/17/16 05:15 10/17/16 05:15 Assess/Plan/Problems-Billing Assessment: Mr. Warren is a 81yo M with PMH of morbid obesity, ABENA (non compliant with CPAP) , HTN, HLD, type 2 DM, bladder CA, CKD stage 3, COPD, who presented with sepsis , acute hypoxic respiratory failure 2/2 Legionella PNA. - Patient Problems (1) Sepsis Comment: - Met sepsis criteria on admission with tachycardia and leukocytosis. - Source is Legionella pneumonia. (2) KOFI (acute kidney injury) Comment: - Creatinine back to baseline. (3) HTN (hypertension) Comment: - BP controlled off meds. - Continue to hold home Metoprolol, Ramipril, HCTZ and Amlodipine. (4) Diabetes Comment: - Continue Lispro SS. - Holding home Trulicity. (5) HLD (hyperlipidemia) Comment: - Continue Atorvastatin. (6) DVT prophylaxis Comment: - SQ heparin. (7) Acute hypoxemic respiratory failure Comment: - Secondary to pneumonia. - Continue supplemental O2. (8) Legionella pneumonia Comment: - ID input appreciated - continue Zithromax. (9) Full code status Status and Disposition: Inpatient for legionella PNA, acute hypoxic respiratory failure. Anticipate d/c in AM.
[2016-10-18] MEDS: Heparin VIAL(*) 5000 UNITS/ML VIAL (FIVE THOUSAND) SUBCUT SCH ×2 (05:57→13:00)
[2016-10-18] MEDS: Omeprazole CAP* 20 MG PO SCH (09:38)
[2016-10-18] MEDS: DULoxetine DR CAP* 60 MG CAP.DR PO SCH (09:38)
[2016-10-18] MEDS: Atorvastatin* 40 MG TAB PO SCH (09:38)
[2016-10-18] MEDS: Finasteride TAB* 5 MG PO SCH (09:38)
[2016-10-18] MEDS: CMC:Solifenacin(NF) 5 MG TAB PO SCH (09:38)
[2016-10-18] MEDS: Insulin LISPRO* 1 UNITS UNIT SUBCUT SCH ×2 (09:41→12:59)
[2016-10-18 10:38] VITALS: BP 144/77
[2016-10-18] MEDS: Mometasone/Formoter 200/5 MDI INH SCH (10:45)
--- NOTE | 2016-10-19 03:46 | DS ---
CC: Dr. Germaine Slater DISCHARGE SUMMARY: DATE OF ADMISSION: 10/14/16 DATE OF DISCHARGE: 10/18/16 PRIMARY CARE PROVIDER: Dr. Germaine Slater at [facility], phone number [phone]. DISCHARGE DIAGNOSES: 1. Severe sepsis. 2. Legionella pneumonia. 3. Acute on chronic hypoxemic respiratory failure. 4. Acute on chronic renal failure. 5. Leukocytosis. 6. Hypotension. SECONDARY DIAGNOSES: 1. Morbid obesity with a BMI of 43. 2. Hypertension. 3. Hyperlipidemia. 4. Type 2 diabetes. 5. Bladder cancer. 6. Chronic kidney disease, stage 3 with a creatinine of 1.7 at baseline. 7. Chronic obstructive pulmonary disease. 8. Status post cystoscopy. 9. Status post appendectomy. MEDICATION LIST: 1. Cholecalciferol 1000 units p.o. daily. 2. Trulicity 1.5 mg subcutaneously weekly. 3. Cymbalta 60 mg p.o. daily. 4. Ferrous sulfate 325 mg p.o. daily. 5. Finasteride 5 mg p.o. daily. 6. Advair 500/50 one puff inhaled b.i.d. 7. Omeprazole 20 mg p.o. daily. 8. Rosuvastatin 20 mg p.o. daily. 9. VESIcare 5 mg p.o. daily. 10. Cialis 2.5 mg p.o. daily as needed for erectile dysfunction. New medications: 1. Azithromycin 500 mg p.o. daily for 3 more days. 2. Metoprolol succinate was reduced to 25 mg p.o. daily. Amlodipine, lisinopril, and hydrochlorothiazide were discontinued. HOSPITAL COURSE: Mr. Warren is a 81-year-old male with a past medical history as stated above that p resented to the emergency room with complaints of fever and body aches. He had recently had a denta l procedure performed, but his workup in the emergency room revealed pneumonia. The patient was adm itted under the impression of severe sepsis secondary to pneumonia as he was tachycardic, had leukoc ytosis and acute renal failure. Chest x-ray showed bilateral infiltrates. CBC showed leukocytosis 17.6 with 88% neutrophils and alt lissette blood cultures yielded no growth. Legionella antigen was positive in the urine. The patient was seen in consultation by Dr. Selby and his impression was that the patient had bib asilar infiltrates, cough, myalgia, diarrhea, and positive Legionella urine antigen, all consistent with Legionella pneumonia. His recommendation was initially to continue ceftriaxone and Zithromax b ut as the other cultures were negative, his recommendation was to complete 7 days of azithromycin. The patient became afebrile, has resolution of his leukocytosis and had progressive improvement of h is symptoms. The patient has COPD and sleep apnea at baseline and he is noncompliant with his CPAP, so he has lani e degree of shortness of breath even when is feeling well. With this pneumonia, he was noted to hav e hypoxia and now requires 2 L of oxygen continuously to maintain his oxygen saturation greater than 90%. The patient was felt to be medically stable for discharge today. Of note is that on admission, the patient was found to be hypotensive and initially all his antihype rtensives were held, but as he continues to improve, his blood pressure is trending up, so his metop rolol is going to be resumed, but I believe that as he continues to recuperate, he is probably going need his prior antihypertensive regimen including amlodipine, lisinopril, and hydrochlorothiazide. He will follow up with his primary care provider on 10/25/16 and at that time, all the antihypertens salud may need to be resumed. The patient was found to be in acute renal failure on admission and this has improved nicely from a creatinine of 3.1 to a 1.7 on discharge. PHYSICAL EXAMINATION: Vital Signs: Temperature 97.5, heart rate is 92, respiratory rate is 18, oxy gen saturation is 97% on 2 L nasal cannula, blood pressure is 144/77. General: The patient is a pl easant obese elderly male, sitting up in chair, in no acute distress. CVS: Normal S1, S2. Regular rate and rhythm. Chest: Breath sounds present bilaterally with bibasilar crackles. Abdomen is obe se, soft. Bowel sounds are present. Extremities: No edema. Neuro: He is alert, awake, oriented x 3. Able to move all 4 extremities. DIET: Heart healthy consistent carb diet. ACTIVITIES: As tolerated. DISPOSITION: To home. STATUS WHILE IN THE HOSPITAL: The patient was also advised to follow up with Dr. Mccurdy (Pulmonolog y) as outpatient to review what other modalities of CPAP he could try at home to treat his sleep truss designer ea. Please keep in mind this is a summarized version of this patient's hospital stay. If you need more i nformation, please feel free to call me at [phone] or please obtain the full medical records. TIME SPENT: Approximately 45 minutes were spent to complete this discharge. [id number]/[facility] [place] #: [id number]
== END 2016-10-18 13:55 | disposition home or self-care (01) | DRG 871 ==
LOC: ED 12:56 → EDBD 12:56 → MERGE 16:55 → MED 16:55
PROVIDERS: ADMIT Internal Medicine; ATTEND Internal Medicine
DX: A41.9 Sepsis, unspecified organism (principal); A48.1 Legionnaires' disease; J96.21 Acute and chronic respiratory failure with hypoxia; N17.9 Acute kidney failure, unspecified; I95.9 Hypotension, unspecified; E11.22 Type 2 diabetes mellitus with diabetic chronic kidney disease; Z68.41 Body mass index [BMI] 40.0-44.9, adult; N18.3 Chronic kidney disease, stage 3 (moderate); E66.01 Morbid (severe) obesity due to excess calories; J44.9 Chronic obstructive pulmonary disease, unspecified; C67.9 Malignant neoplasm of bladder, unspecified; R65.20 Severe sepsis without septic shock; I12.9 Hypertensive chronic kidney disease with stage 1 through stage 4 chronic kidney disease, or unspecified chronic kidney disease; E78.5 Hyperlipidemia, unspecified; Z96.653 Presence of artificial knee joint, bilateral; Z79.84 Long term (current) use of oral hypoglycemic drugs; Z79.899 Other long term (current) drug therapy; Z82.49 Family history of ischemic heart disease and other diseases of the circulatory system; Z87.891 Personal history of nicotine dependence
CPT/HCPCS: 36415; 71020; 80048; 80053; 81003; 81015; 82550; 82570; 83605; 84300; 84484; 85025; 85610; 85652; 85730; 86140; 87040; 87070; 87086; 87205; 87502; 87899; 93005; 93306; 94640; 94760; A9270-GY; J0456; J0696; J1644; J2543; J3370